=== PATIENT | male | born 1935 | race Caucasian/White ===

== ENCOUNTER 2017-12-12 10:29 | Inpatient (IN) | payer OTHER, BC ==
--- NOTE | 2017-12-12 10:52 | PDOC ---
History of Present Illness - General History Source: Family Exam Limitations: No Limitations - History of Present Illness Initial Comments: 12/12/17 11:14 The patient is an 82-year-old male, with a significant past medical history of CAD s/p [place] s/p stent with restenosis, left-sided systolic heart failure with mild aortic stenosis, angina pectoris, HTN, HLD, anemia, dementia, Parkinsons, a large intestine neoplasm, acute erosive gastritis, type 2 diabetes, chronic renal insufficiency, BPH, and urinary retention secondary to obstructive uropathy, who presents to the ED with elevated BP and urinary retention today. As per daughter, the patient was recently admitted last Friday12/07/17 at [facility] for a kidney infection. A de anda was placed and the patient was discharged home with 500 mg Cipro. Daughter decided to bring in the patient today because she noted his blood sugar was over 200 today and he has not been putting out much urine. She also reports that the patient has not been drinking much fluids, but has a good appetite. For the past couple of mornings, the patient has been experiencing shortness of breath for which hes been given O2 at home. The patient is followed by a PCP at [facility] but was previously followed by Dr. Tarah Johnston. She denies that the patient is experiencing any fever, chills, cough, nausea, vomiting, diarrhea, or abdominal pain. Denies any chest pain. Denies any recent trauma. Allergies: Penicillins Surgical History: Stent x2 <Jenny Deng - Last Filed: 12/12/17 12:32> - General History Source: Patient, Family Exam Limitations: No Limitations <Belen Daniel - Last Filed: 12/12/17 15:04> - General Chief Complaint: Weakness Stated Complaint: URINARY PROBLEM (ALTERED MENTAL STATUS) Time Seen by Provider: 12/12/17 10:52 Past History <Jenny Deng - Last Filed: 12/12/17 12:32> - Past Medical History Anemia: Yes Asthma: No Cancer: No Cardiac Disorders: Yes (STENTS, CAD) CVA: Yes (TIA) COPD: No CHF: No DVT: No Dementia: Yes Diabetes: Yes GI Disorders: Yes Disorders: No HTN: Yes Hypercholesterolemia: Yes Liver Disease: No Seizures: No Thyroid Disease: No Other medical history: ble circulation problems - Surgical History Abdominal Surgery: No Appendectomy: No Cardiac Surgery: Yes (SENT X 2) Cholecystectomy: No Lung Surgery: No Neurologic Surgery: No Orthopedic Surgery: No - Immunization History Immunization Up to Date: No - Suicide/Smoking/Psychosocial Hx Smoking Status: No Smoking History: Never smoked Years of Tobacco Use: 0 Have you smoked in the past 12 months: No Number of Cigarettes Smoked Daily: 0 Cigars Per Day: 0 Information on smoking cessation initiated: No Hx Alcohol Use: No Drug/Substance Use Hx: No Substance Use Type: None Hx Substance Use Treatment: No <Belen Daniel - Last Filed: 12/12/17 15:04> - Past Medical History Allergies/Adverse Reactions: Allergies Allergy/AdvReac Type Severity Reaction Status Date / Time Penicillins Allergy Verified 12/12/17 10:31 Home Medications: Ambulatory Orders Amlodipine Besylate [Norvasc -] 5 mg PO DAILY 10/01/12 Carvedilol [Coreg] 25 mg PO BID 10/01/12 Clopidogrel Bisulfate [Plavix -] 75 mg PO DAILY #0 10/06/12 Glipizide [Glucotrol] 10 mg PO BID 11/05/12 Ranolazine [Ranexa] 500 mg PO BID 11/05/12 Atorvastatin Ca [Lipitor] 40 mg PO HS #0 tablet 11/09/12 Insulin (Levemir) [Levemir Flexpen -] 50 units SQ ACBK #0 pen 11/09/12 [place]-3 Acid Ethyl Esters [Lovaza -] 2 gm PO BID #0 cap 11/09/12 Folic Acid - 1 mg PO DAILY 12/01/12 Furosemide [Lasix -] 20 mg PO DAILY 12/01/12 Lisinopril [Prinivil] 20 mg PO DAILY 12/01/12 Pantoprazole Suspension [Protonix Packets For Oral Suspension -] 40 mg PO DAILY 12/01/12 Sitagliptin Phosphate [Januvia] 50 mg PO DAILY 12/01/12 Aspirin 81 mg PO DAILY 04/20/13 Ferrous Sulfate [Feosol] 325 mg PO DAILY 04/20/13 Febuxostat [Uloric -] 1 tab PO DAILY 09/28/13 Review of Systems - Review of Systems Able to Perform ROS?: Yes Comments:: 12/12/17 11:28 GENERAL/CONSTITUTIONAL: No: fever, chills, weakness, loss of appetite. HEAD, EYES, EARS, NOSE AND THROAT: No: change in vision, ear pain, discharge, sore throat, throat swelling. CARDIOVASCULAR: No: chest pain, lightheadedness, palpitations, syncope RESPIRATORY: No: cough, shortness of breath, wheezing, hemoptysis, stridor. GASTROINTESTINAL: No: nausea, vomiting, abdominal cramping, diarrhea, rectal bleeding, constipation. GENITOURINARY: (+)Urinary retention. No: dysuria, hematuria, frequency, urgency , flank pain. MUSCULOSKELETAL: No: back pain, neck pain, joint pain, muscle swelling or pain SKIN AND BREASTS: No: lesions, pallor, rash or easy bruising. NEUROLOGIC: No: headache, vertigo, paresthesias, weakness ENDOCRINE: (+)High BS. No: unexplained weight gain or loss HEMATOLOGIC/LYMPHATIC: No: anemia, easy bleeding, swelling nodes <Jenny Deng - Last Filed: 12/12/17 12:32> *Physical Exam - Vital Signs Last Vital Signs Temp Pulse Resp BP Pulse Ox 97.9 F 63 18 175/108 100 12/12/17 10:32 12/12/17 10:32 12/12/17 10:32 12/12/17 10:32 12/12/17 10:32 - Physical Exam Comments: 12/12/17 11:29 GENERAL: The patient is in no acute distress. HEAD: Normal with no signs of trauma. EYES: PERRLA, EOMI, sclera anicteric, conjunctiva clear. ENT: Ears normal, nares patent, oropharynx clear without exudates. Moist mucous membranes. NECK: Normal range of motion, supple without lymphadenopathy, JVD, or masses. LUNGS: Breath sounds equal, clear to auscultation bilaterally. No wheezes, and no crackles. HEART: (+)5/6 systolic murmur. No rub or gallop. ABDOMEN: Soft, nontender, normoactive bowel sounds. No guarding, no rebound. EXTREMITIES: Normal range of motion, no edema. No clubbing or cyanosis. No erythema, or tenderness. NEUROLOGICAL: (+)Answers questions but slightly confused. Cranial nerves II through XII grossly intact. Normal speech. No focal neurological deficits. MUSCULOSKELETAL: Back non-tender to palpation, no CVA tenderness SKIN: Warm, Dry, normal turgor, no rashes or lesions noted. <IshJenny - Last Filed: 12/12/17 12:32> - Vital Signs Last Vital Signs Temp Pulse Resp BP Pulse Ox 97.9 F 63 18 175/108 100 12/12/17 10:32 12/12/17 10:32 12/12/17 10:32 12/12/17 10:32 12/12/17 10:32 <Belen Daniel - Last Filed: 12/12/17 15:04> ED Treatment Course - LABORATORY CBC & Chemistry Diagram: 12/12/17 11:20 12/12/17 11:20 - RADIOLOGY Radiology Studies Ordered: 12/12/17 12:32 Chest X-Ray was reviewed by Dr. Daniel and over-read by Radiology. Impression: In comparison to a 2015 radiographic study interval development of mild bilateral lower lobe nonspecific opacity is seen which may represent small infiltrates versus congestive change. Clinical/laboratory correlation is suggested. <Jenny Deng - Last Filed: 12/12/17 12:32> - LABORATORY CBC & Chemistry Diagram: 12/12/17 11:20 12/12/17 13:36 <Belen Daniel - Last Filed: 12/12/17 15:04> Medical Decision Making - Medical Decision Making 12/12/17 11:15 Mr Brambila is an 82 yo M with a h/o Dementia, CAD s/p stents, TIA, IDDM, HTN, HLD who presents to the ER with family due to "multiple complaints" Pt was recently seen at OSH, found to have a UTI, started on Cipro de anda cathether placed Pt brought to [facility] according to daughter due to elevated glucose, generalized weakness No fevers or chills No vomiting No diarrhea No trauma Pt daughter is concerned because he had decreased urine output over night (only 200 cc) Pt has been eating, decreased liquid intake Will do: Labs UA Unfortunately, we do not have access to the cultures from [facility] [place] [facility] 12/12/17 12:32 Laboratory Tests 12/12/17 12/12/17 12/12/17 11:20 11:20 11:20 WBC 6.1 D Hgb 12.9 D Hct 39.1 Plt Count 181 Neutrophils % 56.2 Lymphocytes % 27.9 D PT with INR 11.10 INR 0.98 PTT (Actin FS) 28.6 VBG pH 7.36 POC VBG pCO2 44.2 POC VBG pO2 38.2 Mixed VBG HCO3 24.4 Lactic Acid 12/12/17 11:20 WBC Hgb Hct Plt Count Neutrophils % Lymphocytes % PT with INR INR PTT (Actin FS) VBG pH POC VBG pCO2 POC VBG pO2 Mixed VBG HCO3 Lactic Acid 0.6 12/12/17 14:24 Laboratory Tests 12/12/17 13:56 Ur Specific [place] 1.016 Urine Glucose (UA) 2+ H Urine Ketones Negative Urine Blood Negative Ur Leukocyte Esterase Negative Urine WBC (Auto) 2 Urine RBC (Auto) 3 Hyaline Casts 4 EKG: SR rate of 61 bpm, [place] nml, (+) LVH, no ST elevations or depressions T waves upright Still waiting on CMP 12/12/17 14:51 Laboratory Tests 12/12/17 12/12/17 13:36 13:36 Sodium 146 H Potassium 5.0 Chloride 111 H Carbon Dioxide 25 Anion Gap 10 BUN 32 H D Creatinine 1.7 H Random Glucose 266 H D Creatine Kinase 58 Troponin I < 0.02 B-Natriuretic Peptide 3028.38 H I have had a long conversation with this patient's daughter I have expressed that this patient does not have an acute indication to be admitted to the hospital PT daughter states that she can no longer take care of her father She would like him to be admitted and sent to a residential Case reviewed with Dr Johnston He requests consulting Dr Barton Clinical impression: Weakness, initial presentation Hyperglycemia, initial presentation 12/12/17 15:03 CXR: bilateral increased markings which suggests Heart Failure Will admit for CHF vs pneumonia <Bleen Daniel - Last Filed: 12/12/17 15:04> *DC/Admit/Observation/Transfer - Attestations Scribe Attestion: 12/12/17 11:31 Documentation prepared by Jenny Deng, acting as medical legal investigator for Bleen Daniel MD. <Jenny Deng - Last Filed: 12/12/17 12:32> - Discharge Dispostion Admit: Yes <Belen Daniel - Last Filed: 12/12/17 15:04> Diagnosis at time of Disposition: CHF (congestive heart failure) Qualifiers: Heart failure type: other Qualified Code(s): I50.9 - Heart failure, unspecified - Discharge Dispostion Condition at time of disposition: Stable
[2017-12-12 11:32] LABS: VENOUS PH 7.36 (7.32-7.42)
[2017-12-12 11:33] LABS: VENOUS PC02 44.2 mmHg (38-52); VENOUS PO2 38.2 mmHg (28-48)
[2017-12-12 11:36] LABS: BASO % 0.9 % (0-2.0); EOS % 7.9 % (0-4.5); HEMATOCRIT 39.1 % (35.4-49); HEMOGLOBIN 12.9 GM/dL (11.7-16.9); LYMPH % 27.9 % (8-40); MCH 31.2 pg (25.7-33.7); MEAN CELL VOLUME 94.5 fl (80-96); MEAN PLT VOLUME 9.7 fl (7.5-11.1); MONO % 7.1 % (3.8-10.2); NEUT % 56.2 % (42.8-82.8); PLATELET COUNT 181 K/MM3 (134-434); RBC 4.14 M/mm3 (4.00-5.60); RDW 14.5 % (11.9-15.9); WHITE BLOOD COUNT 6.1 K/mm3 (4.0-10.0)
[2017-12-12 11:51] LABS: INR 0.98 (0.82-1.09); PROTHROMBIN TIME (PATIENT) 11.1 SEC (9.98-11.88)
[2017-12-12 11:54] LABS: ACTIVATED PTT 28.6 SECONDS (26.9-34.4)
[2017-12-12 14:08] LABS: URINE APPEARANCE CLEAR; URINE BILIRUBIN NEGATIVE (<2.0 mg/dL); URINE COLOR LTYELLOW; URINE GLUCOSE (UA) 2+ (NEGATIVE); URINE KETONE NEGATIVE (NEGATIVE); URINE LEUK ESTERASE NEGATIVE (NEGATIVE); URINE NITRITE NEGATIVE (NEGATIVE); URINE UROBILINOGEN NEGATIVE mg/dL (0.2-1.0)
[2017-12-12 14:10] LABS: URINE PROTEIN 3+ (NEGATIVE)
[2017-12-12 14:14] LABS: URINE HYALINE CAST 4 /lpf
[2017-12-12 14:33] LABS: ALBUMIN 2.3 g/dl (3.4-5.0); ANION GAP 10 (8-16); BLOOD UREA NITROGEN 32 mg/dL (7-18); CALCIUM 8.7 mg/dL (8.5-10.1); CHLORIDE 111 mmol/L (98-107); CO2 25 mmol/L (21-32); CREATININE 1.7 mg/dL (0.7-1.3); GLUCOSE,RANDOM 266 mg/dL (74-106); SGOT/AST 25 U/L (15-37); SGPT/ALT 22 U/L (12-78); SODIUM 146 mmol/L (136-145)
[2017-12-12 14:38] LABS: ALK PHOS 94 U/L (45-117); BILIRUBIN,TOTAL 0.3 mg/dL (0.2-1.0)
[2017-12-12] MEDS ORDERED: INSULIN REGULAR HUMAN 100 UNITS/ML *VIAL IVPUSH ONE (14:51)
[2017-12-12] MEDS ORDERED: CARVEDILOL 25 MG TABLET (FP) PO ONE (18:30)
[2017-12-12 19:26] VITALS: BMI 26.3
[2017-12-12] MEDS ORDERED: PT OWN MED DRAWER 7, Y5N ONE (21:19)
[2017-12-12] MEDS: INSULIN SLIDING SCALE (NOVOLOG) 1 VIAL SQ SCH (22:41)
[2017-12-13] MEDS: INSULIN SLIDING SCALE (NOVOLOG) 1 VIAL SQ SCH ×4 (06:04→21:24)
[2017-12-13 09:21] LABS: EOS % 4.9 % (0-4.5); HEMATOCRIT 40.2 % (35.4-49); HEMOGLOBIN 13.6 GM/dL (11.7-16.9); LYMPH % 23.9 % (8-40); MCH 31.6 pg (25.7-33.7); MCHC 33.9 g/dl (32.0-35.9); MEAN CELL VOLUME 93.4 fl (80-96); MEAN PLT VOLUME 9.2 fl (7.5-11.1); NEUT % 65.2 % (42.8-82.8); PLATELET COUNT 207 K/MM3 (134-434); RBC 4.31 M/mm3 (4.00-5.60); WHITE BLOOD COUNT 6.7 K/mm3 (4.0-10.0)
[2017-12-13 09:46] LABS: PROTHROMBIN TIME (PATIENT) 11.3 SEC (9.98-11.88)
[2017-12-13 09:53] LABS: ALBUMIN 2.2 g/dl (3.4-5.0); ANION GAP 5 (8-16); BLOOD UREA NITROGEN 26 mg/dL (7-18); CALCIUM 8.5 mg/dL (8.5-10.1); CHLORIDE 108 mmol/L (98-107); CO2 27 mmol/L (21-32); CREATININE 1.5 mg/dL (0.7-1.3); GLUCOSE,RANDOM 240 mg/dL (74-106); POTASSIUM 4.1 mmol/L (3.5-5.1); SGOT/AST 15 U/L (15-37); SGPT/ALT 21 U/L (12-78); SODIUM 140 mmol/L (136-145)
[2017-12-13 09:57] LABS: ALK PHOS 93 U/L (45-117); BILIRUBIN,TOTAL 0.3 mg/dL (0.2-1.0); N-TERMINAL BNP 5139.73 pg/ml (5-450); TOT PROT 5.7 g/dl (6.4-8.2)
--- NOTE | 2017-12-13 11:21 | HP ---
Admitting History and Physical - Admission History of Present Illness: 82-year-old male, with a significant past medical history of CAD s/p [place] s/p stent with restenosis, left-sided systolic heart failure with mild aortic stenosis, angina pectoris, HTN, HLD, anemia, dementia, Parkinson, a large intestine neoplasm, acute erosive gastritis, type 2 diabetes, chronic renal insufficiency, BPH, and urinary retention secondary to obstructive uropathy, who presents to the ED with elevated BP and urinary retention today. As per daughter, the patient was recently admitted last Friday12/07/17 at [facility] for a kidney infection. A de anda was placed and the patient was discharged home with 500 mg Cipro. Daughter decided to bring in the patient today because she noted his blood sugar was over 200 today and he has not been putting out much urine. She also reports that the patient has not been drinking much fluids, but has a good appetite. For the past couple of mornings, the patient has been experiencing shortness of breath for which hes been given O2 at home. 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: Dementia, Other (Lower extremity weakness) Cardiovascular: Yes: CAD, CHF, HTN, Hyperlipdemia Pulmonary: Yes: COPD Renal/: Yes: Other (Urinary retention) Musculoskeletal: Yes: Other (Lower extremity weakness) Endocrine: Yes: Diabetes Mellitus - Smoking History Smoking history: Never smoked Have you smoked in the past 12 months: No Aproximately how many cigarettes per day: 0 - Alcohol/Substance Use Hx Alcohol Use: No Home Medications - Allergies Allergies/Adverse Reactions: Allergies Allergy/AdvReac Type Severity Reaction Status Date / Time Penicillins Allergy Verified 12/12/17 10:31 - Home Medications Home Medications: Ambulatory Orders Amlodipine Besylate [Norvasc -] 5 mg PO DAILY 10/01/12 Carvedilol [Coreg] 25 mg PO BID 10/01/12 Glipizide [Glucotrol] 10 mg PO BID 11/05/12 Lisinopril [Prinivil] 30 mg PO DAILY 12/01/12 Aspirin 81 mg PO DAILY 04/20/13 Ciprofloxacin [Cipro -] 500 mg PO DAILY 12/12/17 Omeprazole 40 mg PO DAILY 12/12/17 Quetiapine Fumarate [Seroquel -] 50 mg PO HS 12/12/17 Heather Esquivelostar 65 unit SQ AM 12/12/17 Review of Systems - Review of Systems Cardiovascular: denies: Chest Pain Physical Examination Vital Signs: Vital Signs Temperature 98.2 F 12/13/17 09:13 Pulse Rate 70 12/13/17 09:13 Respiratory Rate 16 12/13/17 09:13 Blood Pressure 141/66 12/13/17 09:13 O2 Sat by Pulse Oximetry (%) 98 12/12/17 22:00 Cardiovascular: Yes: S1, S2 Respiratory: Yes: Diminished Gastrointestinal: Yes: Normal Bowel Sounds, Soft Edema: No Labs: CBC, BMP 12/13/17 09:13 12/13/17 09:13 Problem List - Problems (1) CAD (coronary artery disease) Assessment/Plan: -follow ce -ekg -cardio Code(s): I25.10 - ATHSCL HEART DISEASE OF [place] CORONARY ARTERY W/O ANG PCTRS (2) HTN (hypertension) Assessment/Plan: -monitor bp on meds -cardio Code(s): I10 - ESSENTIAL (PRIMARY) HYPERTENSION (3) CHF (congestive heart failure) Assessment/Plan: iv lasix follow up ct Code(s): I50.9 - HEART FAILURE, UNSPECIFIED Qualifiers: Heart failure type: other Qualified Code(s): I50.9 - Heart failure, unspecified (4) Renal insufficiency Assessment/Plan: follow closely on diuretics Code(s): N28.9 - DISORDER OF KIDNEY AND URETER, UNSPECIFIED
[2017-12-13] MEDS: PANTOPRAZOLE 40 MG TABLET (FP) PO SCH (11:41)
[2017-12-13] MEDS: ASPIRIN 81 MG CHEWABLE TABLETS PO SCH (11:41)
[2017-12-13] MEDS: CARVEDILOL 25 MG TABLET (FP) PO SCH ×2 (11:42→21:08)
[2017-12-13] MEDS: FUROSEMIDE 40 MG/4 ML INJECTABLE VIAL IVPUSH SCH (12:07)
--- NOTE | 2017-12-13 13:40 | CON.CARD ---
Consult Consult Specialty:: cardiology Referred by:: Oralia Reason for Consultation:: Poorly controlled hypertension - History of Present Illness Chief Complaint: Urinary retention History of Present Illness: The patient is an 82-year-old man with significant dementia, diabetes, hypertension, coronary artery disease and myocardial infarction, prior stents, hyperlipidemia, CHF, mild aortic valve stenosis, large intestine cancer, chronic kidney disease, BPH, obstructive uropathy, admitted on 12/12/2017 with urinary retention and elevated blood pressure. The patient seems comfortable. He is in no apparent distress. 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, Other (Lower extremity weakness) Cardio/Vascular: Yes: CAD, CHF, HTN, Hyperlipdemia Pulmonary: Yes: COPD Renal/: Yes: Other (Urinary retention) Musculoskeletal: Yes: Other (Lower extremity weakness) Endocrine: Yes: Diabetes Mellitus - Alcohol/Substance Use Hx Alcohol Use: No - Smoking History Smoking history: Never smoked Have you smoked in the past 12 months: No Aproximately how many cigarettes per day: 0 Home Medications - Allergies Allergies/Adverse Reactions: Allergies Allergy/AdvReac Type Severity Reaction Status Date / Time Penicillins Allergy Verified 12/12/17 10:31 - Home Medications Home Medications: Ambulatory Orders Amlodipine Besylate [Norvasc -] 5 mg PO DAILY 10/01/12 Carvedilol [Coreg] 25 mg PO BID 10/01/12 Glipizide [Glucotrol] 10 mg PO BID 11/05/12 Lisinopril [Prinivil] 30 mg PO DAILY 12/01/12 Aspirin 81 mg PO DAILY 04/20/13 Ciprofloxacin [Cipro -] 500 mg PO DAILY 12/12/17 Omeprazole 40 mg PO DAILY 12/12/17 Quetiapine Fumarate [Seroquel -] 50 mg PO HS 12/12/17 [place]o Solostar 65 unit SQ AM 12/12/17 Review of Systems - Review of Systems Constitutional: reports: No Symptoms Eyes: reports: No Symptoms HENT: reports: No Symptoms Neck: reports: No Symptoms Cardiovascular: reports: No Symptoms Respiratory: reports: No Symptoms Gastrointestinal: reports: No Symptoms Genitourinary: reports: No Symptoms Breasts: reports: No Symptoms Reported Musculoskeletal: reports: No Symptoms Integumentary: reports: No Symptoms Neurological: reports: No Symptoms Endocrine: reports: No Symptoms Hematology/Lymphatic: reports: No Symptoms Psychiatric: reports: No Symptoms, Hallucinations Vital Signs: Vital Signs Temperature 98.2 F 12/13/17 09:13 Pulse Rate 70 12/13/17 09:13 Respiratory Rate 16 12/13/17 09:13 Blood Pressure 141/66 12/13/17 09:13 O2 Sat by Pulse Oximetry (%) 98 12/12/17 22:00 Constitutional: Yes: Well Nourished, No Distress, Calm Eyes: Yes: WNL, Conjunctiva Clear HENT: Yes: WNL, Atraumatic, Normocephalic Neck: Yes: WNL, Supple, Trachea Midline Respiratory: Yes: WNL, Regular, CTA Bilaterally Gastrointestinal: Yes: WNL, Normal Bowel Sounds, Soft Renal/: Yes: WNL Cardiovascular: Yes: WNL, Regular Rate and Rhythm JVD: No Carotid Bruit: No PMI: Non-Displaced Heart Sounds: Yes: S1, S2 Murmur: Yes: Systolic Murmur, Grade 2 Musculoskeletal: Yes: WNL Extremities: Yes: WNL Edema: No Peripheral Pulses: 1+ Left Carotid, 1+ Right Carotid, 1+ Left Femoral, 1+ Right Femoral, 1+ Left Popliteal, 1+ Right Popliteal, 1+ Left Doralis Pedis, 1+ Right Dorsalis Pedis Neurological: Yes: Other (Dementia) - Other Data Labs, Other Data: CBC, BMP 12/13/17 09:13 12/13/17 09:13 INR, PTT INR 1.00 (0.82-1.09) 12/13/17 09:13 Troponin, BNP 12/12/17 12/12/17 12/13/17 13:36 13:36 09:13 Troponin I < 0.02 < 0.02 B-Natriuretic Peptide 3028.38 H 5139.73 H Troponin, BNP 12/12/17 12/12/17 12/13/17 13:36 13:36 09:13 Troponin I < 0.02 < 0.02 B-Natriuretic Peptide 3028.38 H 5139.73 H Assessment/Plan 82-year-old man with significant dementia, history of diabetes, hypertension, coronary artery disease and myocardial infarction, status post stents, hyperlipidemia, CHF, large intestinal cancer, chronic kidney disease, BPH, obstructive uropathy, now admitted with urinary retention and elevated blood pressure. Next There is no evidence of ischemia nor acute coronary syndrome. No CHF. The patient is breathing comfortably. He is in no apparent distress. The blood pressure needs better control. Start Norvasc 5 mg daily. Continue the other medications as currently. There is no need for further cardiac workup at this point. The patient is stable from the cardiac standpoint. May stop telemetry. Please do not hesitate to call us PRN
[2017-12-13] MEDS: amLODIPine BESYLATE 5 MG TABLET (FP) PO SCH (17:15)
--- NOTE | 2017-12-13 17:36 | EKG ---
Test Reason : Blood Pressure : / mmHG Vent. Rate : 063 BPM Atrial Rate : 063 BPM P-R Int : 166 ms QRS Dur : 086 ms QT Int : 428 ms P-R-T Axes : 039 012 024 degrees QTc Int : 437 ms SINUS RHYTHM WITH OCCASIONAL PREMATURE VENTRICULAR COMPLEXES and Atrial premature contractions SEPTAL INFARCT (CITED ON OR BEFORE 01-OCT-2012) ABNORMAL ECG WHEN COMPARED WITH ECG OF 12-DEC-2017 14:17, PREMATURE VENTRICULAR COMPLEXES ARE NOW PRESENT Confirmed by MD ROMMEL, EULOGIO ([id number]) on 12/13/2017 5:36:05 PM Referred By: Eileen TORRES Confirmed By:EULOGIO CARNEY MD
[2017-12-13] MEDS ORDERED: INSULIN (NOVOLOG) ASPART 100 UNITS/ML 10ML VIAL ONE (20:40)
[2017-12-13] MEDS: QUEtiapine FUMARATE 50 MG TABLET PO SCH (21:08)
[2017-12-14] MEDS: INSULIN SLIDING SCALE (NOVOLOG) 1 VIAL SQ SCH ×4 (06:24→22:04)
[2017-12-14 08:20] LABS: BASO % 0.7 % (0-2.0); EOS % 5.7 % (0-4.5); HEMATOCRIT 35.7 % (35.4-49); HEMOGLOBIN 12.1 GM/dL (11.7-16.9); LYMPH % 24.8 % (8-40); MCH 31.3 pg (25.7-33.7); MCHC 33.8 g/dl (32.0-35.9); MEAN CELL VOLUME 92.7 fl (80-96); MEAN PLT VOLUME 9.3 fl (7.5-11.1); MONO % 7.3 % (3.8-10.2); NEUT % 61.5 % (42.8-82.8); PLATELET COUNT 183 K/MM3 (134-434); RBC 3.85 M/mm3 (4.00-5.60); RDW 13.9 % (11.9-15.9); WHITE BLOOD COUNT 7.1 K/mm3 (4.0-10.0)
[2017-12-14 08:47] LABS: ALBUMIN 1.9 g/dl (3.4-5.0); BLOOD UREA NITROGEN 35 mg/dL (7-18); CALCIUM 8.2 mg/dL (8.5-10.1); CO2 26 mmol/L (21-32); GLUCOSE,RANDOM 188 mg/dL (74-106)
[2017-12-14 09:03] LABS: ALK PHOS 77 U/L (45-117); ANION GAP 8 (8-16); BILIRUBIN,TOTAL 0.2 mg/dL (0.2-1.0); CHLORIDE 108 mmol/L (98-107); CHOLESTEROL 313 mg/dL (50-200); CREATININE 1.8 mg/dL (0.7-1.3); HDL CHOLESTEROL 36 mg/dL (40-60); POTASSIUM 3.6 mmol/L (3.5-5.1); SGOT/AST 13 U/L (15-37); SGPT/ALT 18 U/L (12-78); SODIUM 142 mmol/L (136-145); TRIGLYCERIDES 208 mg/dL (35-160)
--- NOTE | 2017-12-14 09:31 | PN ---
Progress Note, Physician - Current Medication List Current Medications: Active Medications Amlodipine Besylate (Norvasc -) 5 mg PO DAILY [facility] Last Admin: 12/13/17 17:15 Dose: 5 mg Aspirin (Asa -) 81 mg PO DAILY [facility] Last Admin: 12/13/17 11:41 Dose: 81 mg Carvedilol (Coreg -) 25 mg PO BID [facility] Last Admin: 12/13/17 21:08 Dose: 25 mg Furosemide (Lasix Injection -) 40 mg IVPUSH DAILY [facility] Last Admin: 12/13/17 12:07 Dose: 40 mg Levofloxacin (Levaquin 500 Mg Premixed Ivpb -) 500 mg in 100 mls @ 100 mls/hr IVPB DAILY [facility] Insulin Aspart (Novolog Vial Sliding Scale -) 1 vial SQ ACHS [facility] PRN Reason: Protocol Last Admin: 12/14/17 06:24 Dose: 2 units Pantoprazole Sodium (Protonix -) 40 mg PO DAILY [facility] Last Admin: 12/13/17 11:41 Dose: 40 mg Quetiapine Fumarate (Seroquel -) 50 mg PO HS [facility] Last Admin: 12/13/17 21:08 Dose: 50 mg - Objective Vital Signs: Vital Signs Temperature 98 F 12/14/17 07:17 Pulse Rate 57 L 12/14/17 07:17 Respiratory Rate 16 12/14/17 07:17 Blood Pressure 156/72 12/14/17 07:17 O2 Sat by Pulse Oximetry (%) 98 12/13/17 21:00 Cardiovascular: Yes: S1, S2 Respiratory: Yes: Regular, CTA Bilaterally Gastrointestinal: Yes: Normal Bowel Sounds, Soft Neurological: Yes: Alert, Aphasia (--expressive??--difficult to asses due to possible language vs cva), Confusion Labs: CBC, BMP 12/14/17 07:15 12/14/17 07:15 INR, PTT INR 1.00 (0.82-1.09) 12/13/17 09:13 Problem List - Problems (1) CAD (coronary artery disease) Assessment/Plan: -follow ce -ekg -cardio Code(s): I25.10 - ATHSCL HEART DISEASE OF [place] CORONARY ARTERY W/O ANG PCTRS (2) HTN (hypertension) Assessment/Plan: -monitor bp on meds -cardio Code(s): I10 - ESSENTIAL (PRIMARY) HYPERTENSION (3) CHF (congestive heart failure) Assessment/Plan: iv lasix--TO PO follow up ct Code(s): I50.9 - HEART FAILURE, UNSPECIFIED Qualifiers: Heart failure type: other Qualified Code(s): I50.9 - Heart failure, unspecified (4) Renal insufficiency Assessment/Plan: follow closely on diuretics Code(s): N28.9 - DISORDER OF KIDNEY AND URETER, UNSPECIFIED (5) Expressive aphasia Assessment/Plan: -CT HEAD -NEURO -CHECK ON BASELINE WITH FAMILY Code(s): R47.01 - APHASIA
[2017-12-14] MEDS: CARVEDILOL 25 MG TABLET (FP) PO SCH ×2 (09:39→22:03)
[2017-12-14] MEDS: amLODIPine BESYLATE 5 MG TABLET (FP) PO SCH (09:39)
[2017-12-14] MEDS: ASPIRIN 81 MG CHEWABLE TABLETS PO SCH (09:39)
[2017-12-14] MEDS: PANTOPRAZOLE 40 MG TABLET (FP) PO SCH (09:39)
[2017-12-14] MEDS: FUROSEMIDE 40 MG/4 ML INJECTABLE VIAL IVPUSH SCH (09:39)
[2017-12-14] MEDS: QUEtiapine FUMARATE 50 MG TABLET PO SCH (22:03)
[2017-12-14] MEDS: ATORVASTATIN CA 40 MG TABLET (FP) PO SCH (22:03)
[2017-12-15] MEDS: INSULIN SLIDING SCALE (NOVOLOG) 1 VIAL SQ SCH ×4 (06:17→22:22)
[2017-12-15] MEDS ORDERED: PT OWN MED DRAWER 7, Y5N ONE (11:03)
--- NOTE | 2017-12-15 11:40 | EKG ---
Test Reason : Blood Pressure : / mmHG Vent. Rate : 061 BPM Atrial Rate : 061 BPM P-R Int : 156 ms QRS Dur : 084 ms QT Int : 428 ms P-R-T Axes : 026 -05 012 degrees QTc Int : 430 ms NORMAL SINUS RHYTHM MODERATE VOLTAGE CRITERIA FOR LVH, MAY BE NORMAL VARIANT CANNOT RULE OUT SEPTAL INFARCT (CITED ON OR BEFORE 01-OCT-2012) ABNORMAL ECG WHEN COMPARED WITH ECG OF 07-OCT-2014 09:37, T WAVE VARIATION Confirmed by ELMA FARRIS MD ([id number]) on 12/15/2017 11:39:41 AM Referred By: Confirmed By:ELMA FARRIS MD
[2017-12-15] MEDS: CARVEDILOL 25 MG TABLET (FP) PO SCH ×2 (11:49→22:22)
[2017-12-15] MEDS: ASPIRIN 81 MG CHEWABLE TABLETS PO SCH (11:49)
[2017-12-15] MEDS: FUROSEMIDE 20 MG TABLET (FP) PO SCH (11:49)
[2017-12-15] MEDS: amLODIPine BESYLATE 5 MG TABLET (FP) PO SCH (11:50)
[2017-12-15] MEDS: PANTOPRAZOLE 40 MG TABLET (FP) PO SCH (11:50)
--- NOTE | 2017-12-15 12:52 | PN ---
Progress Note, Physician Chief Complaint: AWAKE CONFUSED UNABLE TO GIVE MUCH INFORMATION DUE TO HIS DEMENTIA - Current Medication List Current Medications: Active Medications Albuterol/Ipratropium (Duoneb -) 1 amp NEB Q6H PRN PRN Reason: SHORTNESS OF BREATH Amlodipine Besylate (Norvasc -) 5 mg PO DAILY [facility] Last Admin: 12/15/17 11:50 Dose: 5 mg Aspirin (Asa -) 81 mg PO DAILY [facility] Last Admin: 12/15/17 11:49 Dose: 81 mg Atorvastatin Calcium (Lipitor -) 40 mg PO HS [facility] Last Admin: 12/14/17 22:03 Dose: 40 mg Carvedilol (Coreg -) 25 mg PO BID [facility] Last Admin: 12/15/17 11:49 Dose: 25 mg Furosemide (Lasix -) 20 mg PO DAILY [facility] Last Admin: 12/15/17 11:49 Dose: 20 mg Levofloxacin (Levaquin 500 Mg Premixed Ivpb -) 500 mg in 100 mls @ 100 mls/hr IVPB DAILY [facility] Last Admin: 12/14/17 09:40 Dose: 100 mls/hr Insulin Aspart (Novolog Vial Sliding Scale -) 1 vial SQ ACHS [facility] PRN Reason: Protocol Last Admin: 12/15/17 12:15 Dose: 6 units Pantoprazole Sodium (Protonix -) 40 mg PO DAILY [facility] Last Admin: 12/15/17 11:50 Dose: 40 mg Quetiapine Fumarate (Seroquel -) 50 mg PO HS [facility] Last Admin: 12/14/17 22:03 Dose: 50 mg - Objective Vital Signs: Vital Signs Temperature 98.6 F 12/15/17 09:00 Pulse Rate 64 12/15/17 09:00 Respiratory Rate 20 12/15/17 09:00 Blood Pressure 131/67 12/15/17 09:00 O2 Sat by Pulse Oximetry (%) 100 12/14/17 21:00 Constitutional: Yes: No Distress Eyes: Yes: WNL HENT: Yes: WNL Neck: Yes: WNL Cardiovascular: Yes: WNL Respiratory: Yes: Rhonchi Gastrointestinal: Yes: WNL Genitourinary: Yes: Álvarez Present Musculoskeletal: Yes: Muscle Weakness Extremities: Yes: WNL Edema: No Peripheral Pulses WNL: Yes Integumentary: Yes: WNL Wound/Incision: Yes: Clean/Dry Neurological: Yes: Confusion, Pre-Existing Deficit ...Motor Strength: LLE, RLE Psychiatric: Yes: Other Labs: CBC, BMP 12/14/17 07:15 12/14/17 07:15 INR, PTT INR 1.00 (0.82-1.09) 12/13/17 09:13 Problem List - Problems (1) CVA, old, alterations of sensations Code(s): I69.398 - OTHER SEQUELAE OF CEREBRAL INFARCTION; R20.9 - UNSPECIFIED DISTURBANCES OF SKIN SENSATION (2) CAD (coronary artery disease) Code(s): I25.10 - ATHSCL HEART DISEASE OF [place] CORONARY ARTERY W/O ANG PCTRS (3) CHF (congestive heart failure) Code(s): I50.9 - HEART FAILURE, UNSPECIFIED Qualifiers: Heart failure type: other Qualified Code(s): I50.9 - Heart failure, unspecified (4) Expressive aphasia Code(s): R47.01 - APHASIA (5) HTN (hypertension) Code(s): I10 - ESSENTIAL (PRIMARY) HYPERTENSION (6) Renal insufficiency Code(s): N28.9 - DISORDER OF KIDNEY AND URETER, UNSPECIFIED (7) Urinary retention Code(s): R33.9 - RETENTION OF URINE, UNSPECIFIED Assessment/Plan PULMONARY EVAL FOR CT CHEST CHANGES DUONEB STARTED INCENTIVE SPIROMETRY OLD CVA, DEMENTIA I CALLED AND LEFT A MESSAGE WITH HIS DAUGHTER CARIN. AWAIT CALL BACK PT EVAL SNF IV ABX FOR CHRONIC UTI EVAL FOR URINARY RETENTION BLADDER LENORE
--- NOTE | 2017-12-15 14:40 | CON.GU ---
Consult Consult Specialty:: urology Referred by:: gladis Reason for Consultation:: urinary retention on levaquin for kidney infection - History of Present Illness Chief Complaint: urinary retention on levaquin for kidney infection History of Present Illness: Patient is unable to give an history. The chart and caregiver are utilized for the history. The patient went to [facility] on December 07 at which time a catheter was placed and the patient was started on Cipro. The patient was brought in by his daughter due to rising blood sugars and poor urine output. 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, Other (Lower extremity weakness) Cardio/Vascular: Yes: CAD, CHF, HTN, Hyperlipdemia Pulmonary: Yes: COPD Renal/: Yes: Other (Urinary retention) Musculoskeletal: Yes: Other (Lower extremity weakness) Endocrine: Yes: Diabetes Mellitus - Alcohol/Substance Use Hx Alcohol Use: No - Smoking History Smoking history: Never smoked Have you smoked in the past 12 months: No Aproximately how many cigarettes per day: 0 Home Medications - Allergies Allergies/Adverse Reactions: Allergies Allergy/AdvReac Type Severity Reaction Status Date / Time Penicillins Allergy Verified 12/12/17 10:31 - Home Medications Home Medications: Ambulatory Orders Amlodipine Besylate [Norvasc -] 5 mg PO DAILY 10/01/12 Carvedilol [Coreg] 25 mg PO BID 10/01/12 Glipizide [Glucotrol] 10 mg PO BID 11/05/12 Lisinopril [Prinivil] 30 mg PO DAILY 12/01/12 Aspirin 81 mg PO DAILY 04/20/13 Ciprofloxacin [Cipro -] 500 mg PO DAILY 12/12/17 Omeprazole 40 mg PO DAILY 12/12/17 Quetiapine Fumarate [Seroquel -] 50 mg PO HS 12/12/17 Toujeo Solroldan 65 unit SQ AM 12/12/17 Physical Exam- Vital Signs: Vital Signs Temperature 98.6 F 12/15/17 09:00 Pulse Rate 64 12/15/17 09:00 Respiratory Rate 20 12/15/17 09:00 Blood Pressure 131/67 12/15/17 09:00 O2 Sat by Pulse Oximetry (%) 100 12/14/17 21:00 Constitutional: Yes: Calm Eyes: Yes: WNL, Conjunctiva Clear HENT: Yes: WNL, Atraumatic, Normocephalic Neck: Yes: WNL, Supple, Trachea Midline Respiratory: Yes: WNL, Regular Gastrointestinal: Yes: Normal Bowel Sounds, Soft Renal/: Yes: WNL Kidneys: Yes: WNL Pelvis: Yes: WNL, Bladder Non Palpable Testicles: Yes: WNL Scrotum: Yes: WNL Penis: Yes: WNL Prostate Exam: Yes: Asymmetrical, Swollen Labs: CBC, BMP 12/14/17 07:15 12/14/17 07:15 Imaging - Results Ultrasound: Image Reviewed Assessment/Plan imp uti/pyelo urinary retention bph renal insufficiency plan continue antibiotics start flomax give the patient a trial of voiding on Friday thank you for this consultation
[2017-12-15] MEDS ORDERED: TAMSULOSIN HCL 0.4 MG CAP.ER.24H (FP) PO ONE (15:00)
[2017-12-15] MEDS: ATORVASTATIN CA 40 MG TABLET (FP) PO SCH (22:21)
[2017-12-15] MEDS: QUEtiapine FUMARATE 50 MG TABLET PO SCH (22:22)
[2017-12-16] MEDS: INSULIN SLIDING SCALE (NOVOLOG) 1 VIAL SQ SCH ×4 (06:41→21:16)
[2017-12-16] MEDS: CARVEDILOL 25 MG TABLET (FP) PO SCH ×2 (09:52→21:16)
[2017-12-16] MEDS: amLODIPine BESYLATE 5 MG TABLET (FP) PO SCH (09:52)
[2017-12-16] MEDS: ASPIRIN 81 MG CHEWABLE TABLETS PO SCH (09:52)
[2017-12-16] MEDS: PANTOPRAZOLE 40 MG TABLET (FP) PO SCH (09:52)
[2017-12-16] MEDS: FUROSEMIDE 20 MG TABLET (FP) PO SCH (09:52)
--- NOTE | 2017-12-16 11:04 | CON.PULM ---
Consult Consult Specialty:: PULMONARY Referred by:: Dr. Barton Reason for Consultation:: abnormal CT chest - History of Present Illness Chief Complaint: urinary retention History of Present Illness: 82yo male with h/o HTN, DM, hyperlipidemia, CAD s/p stent, LV systolic dysfunction, aortic stenosis, dementia, CKD who was admitted with urinary retention and hypertension. Now s/p de anda placement with improvement and being treated for possible UTI. CXR during initial work up showing bibasilar opacities confirmed by CT chest which also showed evidence of possible RUL bronchiolitis. Pt denies any shortness of breath, cough or wheezing. No chest pain or palpitations. He is a never smoker. 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, Other (Lower extremity weakness) Cardio/Vascular: Yes: CAD, CHF, HTN, Hyperlipdemia Pulmonary: Yes: COPD Renal/: Yes: Other (Urinary retention) Musculoskeletal: Yes: Other (Lower extremity weakness) Endocrine: Yes: Diabetes Mellitus - Alcohol/Substance Use Hx Alcohol Use: No - Smoking History Smoking history: Never smoked Have you smoked in the past 12 months: No Aproximately how many cigarettes per day: 0 Home Medications - Allergies Allergies/Adverse Reactions: Allergies Allergy/AdvReac Type Severity Reaction Status Date / Time Penicillins Allergy Verified 12/12/17 10:31 - Home Medications Home Medications: Ambulatory Orders Amlodipine Besylate [Norvasc -] 5 mg PO DAILY 10/01/12 Carvedilol [Coreg] 25 mg PO BID 10/01/12 Glipizide [Glucotrol] 10 mg PO BID 11/05/12 Lisinopril [Prinivil] 30 mg PO DAILY 12/01/12 Aspirin 81 mg PO DAILY 04/20/13 Ciprofloxacin [Cipro -] 500 mg PO DAILY 12/12/17 Omeprazole 40 mg PO DAILY 12/12/17 Quetiapine Fumarate [Seroquel -] 50 mg PO HS 12/12/17 Tourafio Solostar 65 unit SQ AM 12/12/17 Review of Systems - Review of Systems Constitutional: denies: Chills, Fever Eyes: denies: Recent Change in Vision HENT: denies: Nasal Congestion, Throat Pain Neck: denies: Stiffness, Tenderness Cardiovascular: denies: Chest Pain, Shortness of Breath Respiratory: denies: Cough, Hemoptysis, SOB, Wheezing Gastrointestinal: denies: Abdominal Pain, Nausea, Vomiting Genitourinary: reports: Other (retention) Neurological: denies: Dizziness, Headache Physical Exam Vital Sings: Vital Signs Temperature 98.2 F 12/16/17 06:00 Pulse Rate 76 12/16/17 06:00 Respiratory Rate 20 12/16/17 06:00 Blood Pressure 141/64 12/16/17 06:00 O2 Sat by Pulse Oximetry (%) 96 12/15/17 21:00 Constitutional: Yes: Calm Eyes: Yes: Conjunctiva Clear, EOM Intact HENT: Yes: Atraumatic, Normocephalic Neck: Yes: Supple, Trachea Midline Cardiovascular: Yes: Regular Rate and Rhythm, Murmur (systolic) Respiratory: Yes: Diminished (decreased breath sounds at the bases) ...Clubbing: No Gastrointestinal: Yes: Normal Bowel Sounds, Soft. No: Tenderness Edema: No Labs: CBC, BMP 12/14/17 07:15 12/14/17 07:15 Imaging - Results Chest X-ray: Report Reviewed, Image Reviewed Cat Scan: Report Reviewed, Image Reviewed (bibasilar atelectasis vs infiltrates , RUL bronchiolitis) Problem List - Problems (1) Urinary retention Code(s): R33.9 - RETENTION OF URINE, UNSPECIFIED (2) CAD (coronary artery disease) Code(s): I25.10 - ATHSCL HEART DISEASE OF [place] CORONARY ARTERY W/O ANG PCTRS (3) HTN (hypertension) Code(s): I10 - ESSENTIAL (PRIMARY) HYPERTENSION (4) Atelectasis Code(s): J98.11 - ATELECTASIS (5) Aortic stenosis Code(s): I35.0 - NONRHEUMATIC AORTIC (VALVE) STENOSIS (6) Aortic regurgitation Code(s): I35.1 - NONRHEUMATIC AORTIC (VALVE) INSUFFICIENCY (7) Pulmonary hypertension Code(s): I27.20 - PULMONARY HYPERTENSION, UNSPECIFIED Assessment/Plan Urinary Retention s/p De Anda placement CAD LV Diastolic Dysfunction Aortic Stenosis/Regurgitation Pulmonary HTN Atelectasis HTN DM Hyperlipidemia Dementia - CT chest findings and clinical exam more consistent with atelectasis rather than pneumonia - RUL findings nonspecific and on levaquin which should cover possible bronchiolitis - incentive spirometry - inhaled bronchodilators as needed - O2 to keep SpO2 >90% - DVT prophylaxis Thank you for this consult John Terrell MD
--- NOTE | 2017-12-16 12:32 | PN ---
Progress Note, Physician Chief Complaint: patient is awake but confused seen by urology for urianry retention started on flomax ,de anda to be DC tmw PT eval ordered for SNF placement - Current Medication List Current Medications: Active Medications Albuterol/Ipratropium (Duoneb -) 1 amp NEB Q6H PRN PRN Reason: SHORTNESS OF BREATH Amlodipine Besylate (Norvasc -) 5 mg PO DAILY [facility] Last Admin: 12/16/17 09:52 Dose: 5 mg Aspirin (Asa -) 81 mg PO DAILY [facility] Last Admin: 12/16/17 09:52 Dose: 81 mg Atorvastatin Calcium (Lipitor -) 40 mg PO HS [facility] Last Admin: 12/15/17 22:21 Dose: 40 mg Carvedilol (Coreg -) 25 mg PO BID [facility] Last Admin: 12/16/17 09:52 Dose: 25 mg Furosemide (Lasix -) 20 mg PO DAILY [facility] Last Admin: 12/16/17 09:52 Dose: 20 mg Levofloxacin (Levaquin 500 Mg Premixed Ivpb -) 500 mg in 100 mls @ 100 mls/hr IVPB DAILY [facility] Last Admin: 12/16/17 09:52 Dose: 100 mls/hr Insulin Aspart (Novolog Vial Sliding Scale -) 1 vial SQ ACHS [facility] PRN Reason: Protocol Last Admin: 12/16/17 11:49 Dose: 6 units Pantoprazole Sodium (Protonix -) 40 mg PO DAILY [facility] Last Admin: 12/16/17 09:52 Dose: 40 mg Quetiapine Fumarate (Seroquel -) 50 mg PO [facility] Last Admin: 12/15/17 22:22 Dose: 50 mg Tamsulosin HCl (Flomax -) 0.4 mg PO ONCE ONE Stop: 12/16/17 12:26 Tamsulosin HCl (Flomax -) 0.4 mg PO DAILY@0830 [facility] - Objective Vital Signs: Vital Signs Temperature 98.7 F 12/16/17 10:00 Pulse Rate 62 12/16/17 10:00 Respiratory Rate 18 12/16/17 10:00 Blood Pressure 140/46 12/16/17 10:00 O2 Sat by Pulse Oximetry (%) 96 12/15/17 21:00 Constitutional: Yes: Calm Cardiovascular: Yes: Regular Rate and Rhythm, S1, S2 Respiratory: Yes: CTA Bilaterally Gastrointestinal: Yes: Normal Bowel Sounds, Soft Genitourinary: Yes: De Anda Present Edema: No Neurological: Yes: Alert Labs: CBC, BMP 12/14/17 07:15 12/14/17 07:15 INR, PTT INR 1.00 (0.82-1.09) 12/13/17 09:13 Problem List - Problems (1) Renal insufficiency Assessment/Plan: orderd bmp for today renal evaluation for CKD Code(s): N28.9 - DISORDER OF KIDNEY AND URETER, UNSPECIFIED (2) Urinary retention Assessment/Plan: appreciate urology noted flomax started dc de anda in AM for trial of voiding Code(s): R33.9 - RETENTION OF URINE, UNSPECIFIED (3) HLD (hyperlipidemia) Assessment/Plan: started on lipitor recheck lipid profile in 4 weeks low cholesterol diet Code(s): E78.5 - HYPERLIPIDEMIA, UNSPECIFIED (4) HTN (hypertension) Assessment/Plan: norvasc and coreg Code(s): I10 - ESSENTIAL (PRIMARY) HYPERTENSION (5) CVA (cerebral vascular accident) Assessment/Plan: old cva neurology consult ordered PT eval for snf placement Code(s): I63.9 - CEREBRAL INFARCTION, UNSPECIFIED (6) Dementia Assessment/Plan: neurology consult ordered seroquel Code(s): F03.90 - UNSPECIFIED DEMENTIA WITHOUT BEHAVIORAL DISTURBANCE (7) UTI (urinary tract infection) Assessment/Plan: on iv levaquin chronic UTI Code(s): N39.0 - URINARY TRACT INFECTION, SITE NOT SPECIFIED (8) Diabetes Assessment/Plan: hgba1c 8.0 sliding scale start levemir 8 units AC breakfast Code(s): E11.9 - TYPE 2 DIABETES MELLITUS WITHOUT COMPLICATIONS Qualifiers: Diabetes mellitus type: type 2
[2017-12-16 13:06] LABS: ALBUMIN 2.2 g/dl (3.4-5.0); ANION GAP 6 (8-16); BILIRUBIN,TOTAL 0.2 mg/dL (0.2-1.0); CALCIUM 8.3 mg/dL (8.5-10.1); CHLORIDE 108 mmol/L (98-107); CO2 28 mmol/L (21-32); GLUCOSE,RANDOM 227 mg/dL (74-106); POTASSIUM 4.2 mmol/L (3.5-5.1); SGOT/AST 19 U/L (15-37); SODIUM 142 mmol/L (136-145); TOT PROT 5.6 g/dl (6.4-8.2)
[2017-12-16 13:09] LABS: ALK PHOS 90 U/L (45-117); BLOOD UREA NITROGEN 46 mg/dL (7-18); SGPT/ALT 20 U/L (12-78)
--- NOTE | 2017-12-16 13:29 | CONSULT ---
Consult - text type - Consultation Consultation Note: NEUROLOGY CONSULTATION is greatly appreciated: This 82 yo man, with h/o HTN, Chol, TG, DM, Anemia, ASHD s/p OK, s/p stents, renal insufficiency, and known GI cancer also has BPH and recurrent urinary retention. He carries neuro dx of "dementia" and "Parkinson's." Maintained on insulins, coreg, seroquel (50 hs), norvasc, lipitor, furosamide and tamsulosin. Now admitted with recurrent urinary retention, requiring Álvarez catheter and antibiotic Rx (Levoquin). CT of head (reviewed): shows diffuse atrophy, ex vacuo hydrocephalus and prominent white matter microvascular disease, especially in the frontal regions. B12, TSH WNL. FABIAN: III/ ELSY radiating into both carotids. Cor Reg. No evidence of external head trauma. Afebrile. Álvarez in situ. Neck supple NEURO: Awake, alert, cooperative. Follow rare commands. Gibberish speech. ++ Glabella, snout, grasps. Full jacobo to threat. No facial. Gag OK Moves all fours well with sl. rigid tone. No sig cogwheel rigidity. Normal reflexes except reduced or absent AJ's. Withdraws all 4's to pinch. IMP: Non-focal exam sig for moderately severe, B/L cerebral dysfunction (OMS, Chronic). Most likely Alzheimer's Disease with prominent temporal lobe involvement (aphasia) Cannot exclude Frontotemporal atrophy (FTA) or Primary Progressive Aphasia (PPA). Suggest: Continue antibiotics, hydration, and supportive care. Social work for home care services if applicable. Thank you very much, Blaze Chapman MD
--- NOTE | 2017-12-16 13:55 | CONSULT ---
Consult Consult Specialty:: Nephrology Reason for Consultation:: CKD - History of Present Illness Chief Complaint: urinary retention History of Present Illness: Pt is an 82 year old male with pmhx of CAD, CHF, urinary retention, CKD and dementia who presnts to the ER with urinary retention. As per chart he was treated for a UTI in an outside hospital. Pt was discharged on cipro. I was called to evaluate the pt for elevated creatinine. He is not able to give much history. He denies shortness of breath. He denies lower ext edema. He denies fevers or chills. 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, Other (Lower extremity weakness) Cardio/Vascular: Yes: CAD, CHF, HTN, Hyperlipdemia Pulmonary: Yes: COPD Renal/: Yes: Renal Inusuff, Other (Urinary retention) Musculoskeletal: Yes: Other (Lower extremity weakness) Endocrine: Yes: Diabetes Mellitus - Alcohol/Substance Use Hx Alcohol Use: No - Smoking History Smoking history: Never smoked Have you smoked in the past 12 months: No Aproximately how many cigarettes per day: 0 Home Medications - Allergies Allergies/Adverse Reactions: Allergies Allergy/AdvReac Type Severity Reaction Status Date / Time Penicillins Allergy Verified 12/12/17 10:31 - Home Medications Home Medications: Ambulatory Orders Amlodipine Besylate [Norvasc -] 5 mg PO DAILY 10/01/12 Carvedilol [Coreg] 25 mg PO BID 10/01/12 Glipizide [Glucotrol] 10 mg PO BID 11/05/12 Lisinopril [Prinivil] 30 mg PO DAILY 12/01/12 Aspirin 81 mg PO DAILY 04/20/13 Ciprofloxacin [Cipro -] 500 mg PO DAILY 12/12/17 Omeprazole 40 mg PO DAILY 12/12/17 Quetiapine Fumarate [Seroquel -] 50 mg PO HS 12/12/17 Tourafio Solostar 65 unit SQ AM 12/12/17 Family Disease History - Family Disease History Family History: Denies Review of Systems - Review of Systems Constitutional: reports: No Symptoms Eyes: reports: No Symptoms HENT: reports: No Symptoms Neck: reports: No Symptoms Cardiovascular: reports: No Symptoms Respiratory: reports: No Symptoms Gastrointestinal: reports: No Symptoms Genitourinary: reports: No Symptoms Musculoskeletal: reports: No Symptoms Integumentary: reports: No Symptoms Neurological: reports: No Symptoms Endocrine: reports: No Symptoms Hematology/Lymphatic: reports: No Symptoms Psychiatric: reports: No Symptoms Physical Exam Vital Signs: Vital Signs Temperature 98.7 F 12/16/17 10:00 Pulse Rate 62 12/16/17 10:00 Respiratory Rate 18 12/16/17 10:00 Blood Pressure 140/46 12/16/17 10:00 O2 Sat by Pulse Oximetry (%) 97 12/16/17 09:00 Constitutional: Yes: Calm Eyes: Yes: Conjunctiva Clear HENT: Yes: Atraumatic Cardiovascular: Yes: S1, S2 Respiratory: Yes: CTA Bilaterally Gastrointestinal: Yes: Normal Bowel Sounds, Soft Renal/: Yes: Álvarez Present Musculoskeletal: Yes: WNL Edema: No Neurological: Yes: Oriented Psychiatric: Yes: Oriented Labs: CBC, BMP 12/14/17 07:15 12/16/17 12:20 Laboratory Tests 10/05/12 11/04/12 11/05/12 06:00 23:30 04:45 WBC Hgb Plt Count Sodium Potassium Chloride Carbon Dioxide Anion Gap Creatinine 1.6 H 3.5 H D 3.3 H BUN Urine Protein Urine WBC (Auto) Urine RBC (Auto) 11/06/12 11/07/12 11/09/12 06:00 06:00 05:35 WBC Hgb Plt Count Sodium Potassium Chloride Carbon Dioxide Anion Gap Creatinine 2.4 H 1.7 H D 1.4 H BUN Urine Protein Urine WBC (Auto) Urine RBC (Auto) 10/06/14 10/07/14 12/12/17 03:55 07:00 11:20 WBC 6.1 D Hgb 12.9 D Plt Count 181 Sodium Potassium Chloride Carbon Dioxide Anion Gap Creatinine 2.6 H 1.9 H D BUN Urine Protein Urine WBC (Auto) Urine RBC (Auto) 12/12/17 12/12/17 12/13/17 13:36 13:56 09:13 WBC Hgb 13.6 Plt Count 207 Sodium Potassium Chloride Carbon Dioxide Anion Gap Creatinine 1.7 H BUN Urine Protein 3+ H D Urine WBC (Auto) 2 Urine RBC (Auto) 3 12/13/17 12/14/17 12/14/17 09:13 07:15 07:15 WBC 7.1 Hgb 12.1 D Plt Count 183 Sodium Potassium Chloride Carbon Dioxide Anion Gap Creatinine 1.5 H 1.8 H BUN Urine Protein Urine WBC (Auto) Urine RBC (Auto) 12/16/17 12:20 WBC Hgb Plt Count Sodium 142 Potassium 4.2 Chloride 108 H Carbon Dioxide 28 Anion Gap 6 L Creatinine 2.0 H BUN 46 H D Urine Protein Urine WBC (Auto) Urine RBC (Auto) Imaging - Results Ultrasound: Report Reviewed Problem List - Problems (1) Aortic regurgitation Code(s): I35.1 - NONRHEUMATIC AORTIC (VALVE) INSUFFICIENCY (2) Aortic stenosis Code(s): I35.0 - NONRHEUMATIC AORTIC (VALVE) STENOSIS (3) CAD (coronary artery disease) Code(s): I25.10 - ATHSCL HEART DISEASE OF [place] CORONARY ARTERY W/O ANG PCTRS (4) CHF (congestive heart failure) Code(s): I50.9 - HEART FAILURE, UNSPECIFIED Qualifiers: Heart failure type: other Qualified Code(s): I50.9 - Heart failure, unspecified (5) CVA (cerebral vascular accident) Code(s): I63.9 - CEREBRAL INFARCTION, UNSPECIFIED (6) Dementia Code(s): F03.90 - UNSPECIFIED DEMENTIA WITHOUT BEHAVIORAL DISTURBANCE (7) Renal insufficiency Code(s): N28.9 - DISORDER OF KIDNEY AND URETER, UNSPECIFIED (8) Urinary retention Code(s): R33.9 - RETENTION OF URINE, UNSPECIFIED Assessment/Plan Current Medications Generic Name Dose Route Start Last Admin Trade Name Freq PRN Reason Stop Dose Admin Albuterol/Ipratropium 1 amp 12/15/17 12:46 Duoneb - NEB Q6H PRN SHORTNESS OF BREATH Amlodipine Besylate 5 mg 12/13/17 15:45 12/16/17 09:52 Norvasc - PO 5 mg DAILY RASHAD Administration Aspirin 81 mg 12/13/17 10:00 12/16/17 09:52 Asa - PO 81 mg DAILY RASHAD Administration Atorvastatin Calcium 40 mg 12/14/17 22:00 12/15/17 22:21 Lipitor - PO 40 mg HS RASHAD Administration Carvedilol 25 mg 12/13/17 10:00 12/16/17 09:52 Coreg - PO 25 mg BID RASHAD Administration Furosemide 20 mg 12/15/17 10:00 12/16/17 09:52 Lasix - PO 20 mg DAILY RASHAD Administration Levofloxacin 500 mg in 100 mls @ 100 mls/hr 12/14/17 10:00 12/16/17 09:52 Levaquin 500 Mg Premixed Ivpb - IVPB 100 mls/hr DAILY RASHAD Administration Insulin Aspart 1 vial 12/12/17 22:00 12/16/17 11:49 Novolog Vial Sliding Scale - SQ 6 units ACHS RASHAD Administration Protocol Insulin Detemir 8 units 12/17/17 07:00 Levemir Vial SQ AM RASHAD Pantoprazole Sodium 40 mg 12/13/17 10:00 12/16/17 09:52 Protonix - PO 40 mg DAILY RASHAD Administration Quetiapine Fumarate 50 mg 12/13/17 22:00 12/15/17 22:22 Seroquel - PO 50 mg HS RASHAD Administration Tamsulosin HCl 0.4 mg 12/17/17 08:30 Flomax - PO DAILY@0830 RASHAD Impression 1. CKD 2. hx UTI 3. urinary obstruction 4. DM 5. dementia 6. CHF 7. HTN 8. HLD 9. colon cancer 10. bph Plan - repeat labs in the am - renal function is not far from baseline - repeat ua - pt will get a voiding trial tomorrow - will need urology follow up Dr Langford
[2017-12-16] MEDS ORDERED: TAMSULOSIN HCL 0.4 MG CAP.ER.24H (FP) PO ONE (14:00)
[2017-12-16 17:17] LABS: URINE APPEARANCE CLEAR; URINE BILIRUBIN NEGATIVE (<2.0 mg/dL); URINE COLOR STRAW; URINE GLUCOSE (UA) 1+ (NEGATIVE); URINE KETONE NEGATIVE (NEGATIVE); URINE LEUK ESTERASE NEGATIVE (NEGATIVE); URINE NITRITE NEGATIVE (NEGATIVE); URINE PROTEIN 2+ (NEGATIVE); URINE UROBILINOGEN NEGATIVE mg/dL (0.2-1.0)
[2017-12-16 17:18] LABS: URINE MUCUS RARE
[2017-12-16] MEDS: ALBUTEROL SO4 2.5/IPRATROPIUM 0.5 INH SOL 3 ML VIAL.NEB. NEB PRN (20:20)
[2017-12-16] MEDS: QUEtiapine FUMARATE 50 MG TABLET PO SCH (21:16)
[2017-12-16] MEDS: ATORVASTATIN CA 40 MG TABLET (FP) PO SCH (21:16)
[2017-12-17] MEDS: INSULIN (LEVEMIR) 100 UNITS/ML UNITS SQ SCH (06:24)
[2017-12-17] MEDS: INSULIN SLIDING SCALE (NOVOLOG) 1 VIAL SQ SCH ×4 (06:25→21:58)
[2017-12-17 08:07] LABS: ANION GAP 7 (8-16); BLOOD UREA NITROGEN 40 mg/dL (7-18); CALCIUM 8.3 mg/dL (8.5-10.1); CHLORIDE 108 mmol/L (98-107); CO2 27 mmol/L (21-32); GLUCOSE,RANDOM 249 mg/dL (74-106); POTASSIUM 3.8 mmol/L (3.5-5.1); SODIUM 142 mmol/L (136-145)
[2017-12-17 08:08] LABS: CREATININE 1.9 mg/dL (0.7-1.3)
[2017-12-17] MEDS: ALBUTEROL SO4 2.5/IPRATROPIUM 0.5 INH SOL 3 ML VIAL.NEB. NEB PRN (09:07)
[2017-12-17] MEDS: FUROSEMIDE 20 MG TABLET (FP) PO SCH (10:10)
[2017-12-17] MEDS: amLODIPine BESYLATE 5 MG TABLET (FP) PO SCH (10:11)
[2017-12-17] MEDS: TAMSULOSIN HCL 0.4 MG CAP.ER.24H (FP) PO SCH (10:11)
[2017-12-17] MEDS: CARVEDILOL 25 MG TABLET (FP) PO SCH ×2 (10:11→21:57)
[2017-12-17] MEDS: PANTOPRAZOLE 40 MG TABLET (FP) PO SCH (10:11)
[2017-12-17] MEDS: ASPIRIN 81 MG CHEWABLE TABLETS PO SCH (10:12)
--- NOTE | 2017-12-17 11:26 | PN ---
Progress Note, Physician - Current Medication List Current Medications: Active Medications Albuterol/Ipratropium (Duoneb -) 1 amp NEB Q6H PRN PRN Reason: SHORTNESS OF BREATH Last Admin: 12/17/17 09:07 Dose: 1 amp Amlodipine Besylate (Norvasc -) 5 mg PO DAILY [facility] Last Admin: 12/17/17 10:11 Dose: 5 mg Aspirin (Asa -) 81 mg PO DAILY [facility] Last Admin: 12/17/17 10:12 Dose: 81 mg Atorvastatin Calcium (Lipitor -) 40 mg PO [facility] Last Admin: 12/16/17 21:16 Dose: 40 mg Carvedilol (Coreg -) 25 mg PO BID [facility] Last Admin: 12/17/17 10:11 Dose: 25 mg Furosemide (Lasix -) 20 mg PO DAILY [facility] Last Admin: 12/17/17 10:10 Dose: 20 mg Levofloxacin (Levaquin 500 Mg Premixed Ivpb -) 500 mg in 100 mls @ 100 mls/hr IVPB DAILY [facility] Last Admin: 12/17/17 10:12 Dose: 100 mls/hr Insulin Aspart (Novolog Vial Sliding Scale -) 1 vial SQ ACHS [facility] PRN Reason: Protocol Last Admin: 12/17/17 06:25 Dose: 6 units Insulin Detemir (Levemir Vial) 8 units SQ AM [facility] Last Admin: 12/17/17 06:24 Dose: 8 units Pantoprazole Sodium (Protonix -) 40 mg PO DAILY [facility] Last Admin: 12/17/17 10:11 Dose: 40 mg Quetiapine Fumarate (Seroquel -) 50 mg PO [facility] Last Admin: 12/16/17 21:16 Dose: 50 mg Tamsulosin HCl (Flomax -) 0.4 mg PO DAILY@0830 [facility] Last Admin: 12/17/17 10:11 Dose: 0.4 mg - Objective Vital Signs: Vital Signs Temperature 97.9 F 12/17/17 06:00 Pulse Rate 64 12/17/17 06:00 Respiratory Rate 20 12/17/17 06:00 Blood Pressure 145/80 12/17/17 06:00 O2 Sat by Pulse Oximetry (%) 98 12/16/17 21:00 Cardiovascular: Yes: Regular Rate and Rhythm Respiratory: Yes: Regular, CTA Bilaterally Gastrointestinal: Yes: Normal Bowel Sounds, Soft Edema: No Neurological: Yes: Confusion Labs: CBC, BMP 12/14/17 07:15 12/17/17 06:30 INR, PTT INR 1.00 (0.82-1.09) 12/13/17 09:13 Problem List - Problems (1) CAD (coronary artery disease) Code(s): I25.10 - ATHSCL HEART DISEASE OF [place] CORONARY ARTERY W/O ANG PCTRS (2) HTN (hypertension) Code(s): I10 - ESSENTIAL (PRIMARY) HYPERTENSION (3) CHF (congestive heart failure) Code(s): I50.9 - HEART FAILURE, UNSPECIFIED Qualifiers: Heart failure type: other Qualified Code(s): I50.9 - Heart failure, unspecified (4) Renal insufficiency Code(s): N28.9 - DISORDER OF KIDNEY AND URETER, UNSPECIFIED (5) Expressive aphasia Code(s): R47.01 - APHASIA Assessment/Plan - Problems (1) Renal insufficiency Assessment/Plan: ordered bmp renal evaluation for CKD Code(s): N28.9 - DISORDER OF KIDNEY AND URETER, UNSPECIFIED (2) Urinary retention Assessment/Plan: appreciate urology noted flomax started dc de anda for trial of voiding Code(s): R33.9 - RETENTION OF URINE, UNSPECIFIED (3) HLD (hyperlipidemia) Assessment/Plan: started on lipitor recheck lipid profile in 4 weeks low cholesterol diet Code(s): E78.5 - HYPERLIPIDEMIA, UNSPECIFIED (4) HTN (hypertension) Assessment/Plan: norvasc and coreg Code(s): I10 - ESSENTIAL (PRIMARY) HYPERTENSION (5) CVA (cerebral vascular accident) Assessment/Plan: old cva neurology consult ordered PT eval for snf placement Code(s): I63.9 - CEREBRAL INFARCTION, UNSPECIFIED (6) Dementia Assessment/Plan: neurology consult ordered seroquel Code(s): F03.90 - UNSPECIFIED DEMENTIA WITHOUT BEHAVIORAL DISTURBANCE (7) UTI (urinary tract infection) Assessment/Plan: on iv levaquin chronic UTI Code(s): N39.0 - URINARY TRACT INFECTION, SITE NOT SPECIFIED (8) Diabetes Assessment/Plan: hgba1c 8.0 sliding scale start levemir 8 units AC breakfast Code(s): E11.9 - TYPE 2 DIABETES MELLITUS WITHOUT COMPLICATIONS Qualifiers: Diabetes mellitus type: type 2
--- NOTE | 2017-12-17 12:45 | PN ---
Progress Note (short form) - Note Progress Note: PULMONARY Denies shortness of breath, cough or wheezing. Last Vital Signs Temp Pulse Resp BP Pulse Ox 98.1 F 60 20 164/68 98 12/17/17 10:00 12/17/17 10:00 12/17/17 10:00 12/17/17 10:00 12/16/17 21:00 Gen: NAD at rest Heart: RRR Lung: basilar rales Abd: soft, nontender Ext: no edema CBC, BMP 12/14/17 07:15 12/17/17 06:30 Active Medications Albuterol/Ipratropium (Duoneb -) 1 amp NEB Q6H PRN PRN Reason: SHORTNESS OF BREATH Last Admin: 12/17/17 09:07 Dose: 1 amp Amlodipine Besylate (Norvasc -) 5 mg PO DAILY [facility] Last Admin: 12/17/17 10:11 Dose: 5 mg Aspirin (Asa -) 81 mg PO DAILY [facility] Last Admin: 12/17/17 10:12 Dose: 81 mg Atorvastatin Calcium (Lipitor -) 40 mg PO HS [facility] Last Admin: 12/16/17 21:16 Dose: 40 mg Carvedilol (Coreg -) 25 mg PO BID [facility] Last Admin: 12/17/17 10:11 Dose: 25 mg Furosemide (Lasix -) 20 mg PO DAILY [facility] Last Admin: 12/17/17 10:10 Dose: 20 mg Levofloxacin (Levaquin 500 Mg Premixed Ivpb -) 500 mg in 100 mls @ 100 mls/hr IVPB DAILY [facility] Last Admin: 12/17/17 10:12 Dose: 100 mls/hr Insulin Aspart (Novolog Vial Sliding Scale -) 1 vial SQ ACHS [facility] PRN Reason: Protocol Last Admin: 12/17/17 11:25 Dose: 8 units Insulin Detemir (Levemir Vial) 8 units SQ AM [facility] Last Admin: 12/17/17 06:24 Dose: 8 units Pantoprazole Sodium (Protonix -) 40 mg PO DAILY [facility] Last Admin: 12/17/17 10:11 Dose: 40 mg Quetiapine Fumarate (Seroquel -) 50 mg PO HS [facility] Last Admin: 12/16/17 21:16 Dose: 50 mg Tamsulosin HCl (Flomax -) 0.4 mg PO DAILY@0830 [facility] Last Admin: 12/17/17 10:11 Dose: 0.4 mg A/P Urinary Retention s/p Álvarez placement CAD LV Diastolic Dysfunction Aortic Stenosis/Regurgitation Pulmonary HTN Atelectasis HTN DM Hyperlipidemia CKD Dementia - CT chest findings and clinical exam more consistent with atelectasis rather than pneumonia - RUL findings nonspecific and on levaquin which should cover possible bronchiolitis - incentive spirometry - inhaled bronchodilators as needed - O2 to keep SpO2 >90% - DVT prophylaxis Problem List - Problems (1) Urinary retention Code(s): R33.9 - RETENTION OF URINE, UNSPECIFIED (2) CAD (coronary artery disease) Code(s): I25.10 - ATHSCL HEART DISEASE OF [place] CORONARY ARTERY W/O ANG PCTRS (3) HTN (hypertension) Code(s): I10 - ESSENTIAL (PRIMARY) HYPERTENSION (4) Atelectasis Code(s): J98.11 - ATELECTASIS (5) Aortic stenosis Code(s): I35.0 - NONRHEUMATIC AORTIC (VALVE) STENOSIS (6) Aortic regurgitation Code(s): I35.1 - NONRHEUMATIC AORTIC (VALVE) INSUFFICIENCY (7) Pulmonary hypertension Code(s): I27.20 - PULMONARY HYPERTENSION, UNSPECIFIED
--- NOTE | 2017-12-17 13:11 | PN ---
Progress Note, Physician History of Present Illness: Pt seen and examined at bedside. He is awake and appears comfortable. He denies shortness of breath. - Current Medication List Current Medications: Active Medications Albuterol/Ipratropium (Duoneb -) 1 amp NEB Q6H PRN PRN Reason: SHORTNESS OF BREATH Last Admin: 12/17/17 09:07 Dose: 1 amp Amlodipine Besylate (Norvasc -) 5 mg PO DAILY [facility] Last Admin: 12/17/17 10:11 Dose: 5 mg Aspirin (Asa -) 81 mg PO DAILY [facility] Last Admin: 12/17/17 10:12 Dose: 81 mg Atorvastatin Calcium (Lipitor -) 40 mg PO HS [facility] Last Admin: 12/16/17 21:16 Dose: 40 mg Carvedilol (Coreg -) 25 mg PO BID [facility] Last Admin: 12/17/17 10:11 Dose: 25 mg Furosemide (Lasix -) 20 mg PO DAILY [facility] Last Admin: 12/17/17 10:10 Dose: 20 mg Levofloxacin (Levaquin 500 Mg Premixed Ivpb -) 500 mg in 100 mls @ 100 mls/hr IVPB DAILY [facility] Last Admin: 12/17/17 10:12 Dose: 100 mls/hr Insulin Aspart (Novolog Vial Sliding Scale -) 1 vial SQ ACHS [facility] PRN Reason: Protocol Last Admin: 12/17/17 11:25 Dose: 8 units Insulin Detemir (Levemir Vial) 8 units SQ AM [facility] Last Admin: 12/17/17 06:24 Dose: 8 units Pantoprazole Sodium (Protonix -) 40 mg PO DAILY [facility] Last Admin: 12/17/17 10:11 Dose: 40 mg Quetiapine Fumarate (Seroquel -) 50 mg PO HS [facility] Last Admin: 12/16/17 21:16 Dose: 50 mg Tamsulosin HCl (Flomax -) 0.4 mg PO DAILY@0830 [facility] Last Admin: 12/17/17 10:11 Dose: 0.4 mg - Objective Vital Signs: Vital Signs Temperature 98.1 F 12/17/17 10:00 Pulse Rate 60 12/17/17 10:00 Respiratory Rate 20 12/17/17 10:00 Blood Pressure 164/68 12/17/17 10:00 O2 Sat by Pulse Oximetry (%) 98 04/03/18 21:00 Constitutional: Yes: Calm Eyes: Yes: Conjunctiva Clear HENT: Yes: Atraumatic Neck: Yes: Supple Cardiovascular: Yes: S1, S2 Respiratory: Yes: CTA Bilaterally Gastrointestinal: Yes: Soft Genitourinary: Yes: Álvarez Present Extremities: Yes: WNL Edema: No Integumentary: Yes: WNL Neurological: Yes: Oriented Labs: CBC, BMP 12/14/17 07:15 12/17/17 06:30 INR, PTT INR 1.00 (0.82-1.09) 12/13/17 09:13 Problem List - Problems (1) Aortic regurgitation Code(s): I35.1 - NONRHEUMATIC AORTIC (VALVE) INSUFFICIENCY (2) Aortic stenosis Code(s): I35.0 - NONRHEUMATIC AORTIC (VALVE) STENOSIS (3) CAD (coronary artery disease) Code(s): I25.10 - ATHSCL HEART DISEASE OF [place] CORONARY ARTERY W/O ANG PCTRS (4) CHF (congestive heart failure) Code(s): I50.9 - HEART FAILURE, UNSPECIFIED Qualifiers: Heart failure type: other Qualified Code(s): I50.9 - Heart failure, unspecified (5) CVA (cerebral vascular accident) Code(s): I63.9 - CEREBRAL INFARCTION, UNSPECIFIED (6) Dementia Code(s): F03.90 - UNSPECIFIED DEMENTIA WITHOUT BEHAVIORAL DISTURBANCE (7) Renal insufficiency Code(s): N28.9 - DISORDER OF KIDNEY AND URETER, UNSPECIFIED (8) Urinary retention Code(s): R33.9 - RETENTION OF URINE, UNSPECIFIED Assessment/Plan Current Medications Generic Name Dose Route Start Last Admin Trade Name Freq PRN Reason Stop Dose Admin Albuterol/Ipratropium 1 amp 12/15/17 12:46 12/17/17 09:07 Duoneb - NEB 1 amp Q6H PRN Administration SHORTNESS OF BREATH Amlodipine Besylate 5 mg 12/13/17 15:45 12/17/17 10:11 Norvasc - PO 5 mg DAILY [facility] Administration Aspirin 81 mg 12/13/17 10:00 12/17/17 10:12 Asa - PO 81 mg DAILY [facility] Administration Atorvastatin Calcium 40 mg 12/14/17 22:00 12/16/17 21:16 Lipitor - PO 40 mg HS [facility]AD Administration Carvedilol 25 mg 12/13/17 10:00 12/17/17 10:11 Coreg - PO 25 mg BID [facility]AD Administration Furosemide 20 mg 12/15/17 10:00 12/17/17 10:10 Lasix - PO 20 mg DAILY [facility] Administration Levofloxacin 500 mg in 100 mls @ 100 mls/hr 12/14/17 10:00 12/17/17 10:12 Levaquin 500 Mg Premixed Ivpb - IVPB 100 mls/hr DAILY [facility] Administration Insulin Aspart 1 vial 12/12/17 22:00 12/17/17 11:25 Novolog Vial Sliding Scale - SQ 8 units ACHS [facility]AD Administration Protocol Insulin Detemir 8 units 12/17/17 07:00 12/17/17 06:24 Levemir Vial SQ 8 units AM [facility] Administration Pantoprazole Sodium 40 mg 12/13/17 10:00 12/17/17 10:11 Protonix - PO 40 mg DAILY [facility] Administration Quetiapine Fumarate 50 mg 12/13/17 22:00 12/16/17 21:16 Seroquel - PO 50 mg HS [facility] Administration Tamsulosin HCl 0.4 mg 12/17/17 08:30 12/17/17 10:11 Flomax - PO 0.4 mg DAILY@0830 [facility] Administration Impression 1. CKD 2. hx UTI 3. urinary obstruction 4. DM 5. dementia 6. CHF 7. HTN 8. HLD 9. colon cancer 10. bph 11. proteinuria Plan - renal function is stable - cont flomax - voiding trial per urology - will see as outpt for workup - avoid nsaids and nephrotoxins Dr Langford
[2017-12-17] MEDS: QUEtiapine FUMARATE 50 MG TABLET PO SCH (21:57)
[2017-12-17] MEDS: ATORVASTATIN CA 40 MG TABLET (FP) PO SCH (21:57)
[2017-12-18] MEDS: INSULIN (LEVEMIR) 100 UNITS/ML UNITS SQ SCH (06:23)
[2017-12-18] MEDS: INSULIN SLIDING SCALE (NOVOLOG) 1 VIAL SQ SCH ×2 (06:25→11:58)
--- NOTE | 2017-12-18 07:59 | DS ---
Physical Examination Vital Signs: Vital Signs Temperature 97.2 F L 12/17/17 22:00 Pulse Rate 70 12/17/17 22:00 Respiratory Rate 18 12/17/17 22:00 Blood Pressure 130/75 12/17/17 22:00 O2 Sat by Pulse Oximetry (%) 100 12/17/17 21:00 Cardiovascular: Yes: Regular Rate and Rhythm Respiratory: Yes: Regular, CTA Bilaterally Gastrointestinal: Yes: Normal Bowel Sounds, Soft Renal/: Yes: Other (de anda out) Labs: CBC, BMP 12/14/17 07:15 12/17/17 06:30 Discharge Summary Reason For Visit: CONGESTIVE HEART FAILURE Current Active Problems Aortic regurgitation (Acute) Aortic stenosis (Acute) Atelectasis (Acute) CAD (coronary artery disease) (Acute) CHF (congestive heart failure) (Acute) CVA (cerebral vascular accident) (Acute) CVA, old, alterations of sensations (Acute) Dementia (Acute) Diabetes (Acute) Expressive aphasia (Acute) HLD (hyperlipidemia) (Acute) HTN (hypertension) (Acute) Pulmonary hypertension (Acute) UTI (urinary tract infection) (Acute) Hospital Course: 82-year-old male, with a significant past medical history of CAD s/p GA s/p stent with restenosis, left-sided systolic heart failure with mild aortic stenosis, angina pectoris, HTN, HLD, anemia, dementia, Parkinson, a large intestine neoplasm, acute erosive gastritis, type 2 diabetes, chronic renal insufficiency, BPH, and urinary retention secondary to obstructive uropathy, who presents to the ED with elevated BP and urinary retention today. As per daughter, the patient was recently admitted last Friday12/07/17 at [facility] for a kidney infection. A de anda was placed and the patient was discharged home with 500 mg Cipro. Daughter decided to bring in the patient today because she noted his blood sugar was over 200 today and he has not been putting out much urine. She also reports that the patient has not been drinking much fluids, but has a good appetite. For the past couple of mornings, the patient has been experiencing shortness of breath for which hes been given O2 at home. - Past Medical History SWAGE TENDER: Yes: Dementia, Other (Lower extremity weakness) Cardiovascular: Yes: CAD, CHF, HTN, Hyperlipdemia Pulmonary: Yes: COPD Renal/: Yes: Other (Urinary retention) Musculoskeletal: Yes: Other (Lower extremity weakness) Endocrine: Yes: Diabetes Mellitus - Problems (1) Renal insufficiency Assessment/Plan: ordered bmp renal evaluation for CKD Code(s): N28.9 - DISORDER OF KIDNEY AND URETER, UNSPECIFIED (2) Urinary retention Assessment/Plan: appreciate urology noted flomax started dc de anda for trial of voiding--voiding no retention Code(s): R33.9 - RETENTION OF URINE, UNSPECIFIED (3) HLD (hyperlipidemia) Assessment/Plan: started on lipitor recheck lipid profile in 4 weeks low cholesterol diet Code(s): E78.5 - HYPERLIPIDEMIA, UNSPECIFIED (4) HTN (hypertension) Assessment/Plan: norvasc and coreg Code(s): I10 - ESSENTIAL (PRIMARY) HYPERTENSION (5) CVA (cerebral vascular accident) Assessment/Plan: old cva neurology consult ordered PT eval for snf placement Code(s): I63.9 - CEREBRAL INFARCTION, UNSPECIFIED (6) Dementia Assessment/Plan: neurology consult ordered seroquel Code(s): F03.90 - UNSPECIFIED DEMENTIA WITHOUT BEHAVIORAL DISTURBANCE (7) UTI (urinary tract infection) Assessment/Plan: on iv levaquin chronic UTI Code(s): N39.0 - URINARY TRACT INFECTION, SITE NOT SPECIFIED (8) Diabetes Assessment/Plan: hgba1c 8.0 sliding scale start levemir 8 units AC breakfast Code(s): E11.9 - TYPE 2 DIABETES MELLITUS WITHOUT COMPLICATIONS Qualifiers: Diabetes mellitus type: type 2 Condition: Stable - Instructions Disposition: [facility] - Home Medications Comprehensive Discharge Medication List: Ambulatory Orders Carvedilol [Coreg] 25 mg PO BID 10/01/12 Aspirin 81 mg PO DAILY 04/20/13 Omeprazole 40 mg PO DAILY 12/12/17 Quetiapine Fumarate [Seroquel -] 50 mg PO HS 12/12/17 Albuterol 2.5/Ipratropium 0.5 [Duoneb -] 1 amp NEB Q6H PRN amp 12/18/17 Amlodipine Besylate [Norvasc -] 5 mg PO DAILY tablet 12/18/17 Atorvastatin Ca [Lipitor] 40 mg PO HS tablet 12/18/17 Furosemide [Lasix -] 20 mg PO DAILY tablet 12/18/17 Insulin (Levemir) [Levemir Vial] 8 units SQ AM ml 12/18/17 Insulin Sliding Scale [Novolog Vial Sliding Scale -] 1 vial SQ ACHS units 12/18 Tamsulosin HCl [Flomax -] 0.4 mg PO DAILY@0830 cap.er.24h 12/18/17
[2017-12-18] MEDS: TAMSULOSIN HCL 0.4 MG CAP.ER.24H (FP) PO SCH (08:37)
[2017-12-18 08:40] VITALS: BP 150/64; PULSE 62; TEMP 97.5
[2017-12-18] MEDS: CARVEDILOL 25 MG TABLET (FP) PO SCH (09:07)
[2017-12-18] MEDS: PANTOPRAZOLE 40 MG TABLET (FP) PO SCH (09:07)
[2017-12-18] MEDS: amLODIPine BESYLATE 5 MG TABLET (FP) PO SCH (09:07)
[2017-12-18] MEDS: ASPIRIN 81 MG CHEWABLE TABLETS PO SCH (09:07)
[2017-12-18] MEDS: FUROSEMIDE 20 MG TABLET (FP) PO SCH (09:08)
--- NOTE | 2017-12-18 11:47 | PN ---
Progress Note (short form) - Note Progress Note: PULMONARY Denies shortness of breath, cough or wheezing. No fevers recorded. Last Vital Signs Temp Pulse Resp BP Pulse Ox 97.5 F L 62 18 150/64 97 12/18/17 08:38 12/18/17 08:38 12/18/17 08:38 12/18/17 08:38 12/18/17 08:42 Gen: NAD at rest Heart: RRR Lung: basilar rales Abd: soft, nontender Ext: no edema CBC, BMP 12/14/17 07:15 12/17/17 06:30 Active Medications Albuterol/Ipratropium (Duoneb -) 1 amp NEB Q6H PRN PRN Reason: SHORTNESS OF BREATH Last Admin: 12/17/17 09:07 Dose: 1 amp Amlodipine Besylate (Norvasc -) 5 mg PO DAILY [facility] Last Admin: 12/18/17 09:07 Dose: 5 mg Aspirin (Asa -) 81 mg PO DAILY [facility] Last Admin: 12/18/17 09:07 Dose: 81 mg Atorvastatin Calcium (Lipitor -) 40 mg PO HS [facility] Last Admin: 12/17/17 21:57 Dose: 40 mg Carvedilol (Coreg -) 25 mg PO BID [facility] Last Admin: 12/18/17 09:07 Dose: 25 mg Furosemide (Lasix -) 20 mg PO DAILY [facility] Last Admin: 12/18/17 09:08 Dose: 20 mg Levofloxacin (Levaquin 500 Mg Premixed Ivpb -) 500 mg in 100 mls @ 100 mls/hr IVPB DAILY [facility] Last Admin: 12/18/17 09:07 Dose: 100 mls/hr Insulin Aspart (Novolog Vial Sliding Scale -) 1 vial SQ ACHS [facility] PRN Reason: Protocol Last Admin: 12/18/17 06:25 Dose: 6 units Insulin Detemir (Levemir Vial) 8 units SQ AM [facility] Last Admin: 12/18/17 06:23 Dose: 8 units Pantoprazole Sodium (Protonix -) 40 mg PO DAILY [facility] Last Admin: 12/18/17 09:07 Dose: 40 mg Quetiapine Fumarate (Seroquel -) 50 mg PO HS [facility] Last Admin: 12/17/17 21:57 Dose: 50 mg Tamsulosin HCl (Flomax -) 0.4 mg PO DAILY@0830 [facility] Last Admin: 12/18/17 08:37 Dose: 0.4 mg A/P Urinary Retention s/p Álvarez placement CAD LV Diastolic Dysfunction Aortic Stenosis/Regurgitation Pulmonary HTN Atelectasis HTN DM Hyperlipidemia CKD Dementia - CT chest findings and clinical exam more consistent with atelectasis rather than pneumonia - RUL findings nonspecific and on levaquin which should cover possible bronchiolitis - incentive spirometry - inhaled bronchodilators as needed - O2 to keep SpO2 >90% - DVT prophylaxis Problem List - Problems (1) Urinary retention Code(s): R33.9 - RETENTION OF URINE, UNSPECIFIED (2) CAD (coronary artery disease) Code(s): I25.10 - ATHSCL HEART DISEASE OF [place] CORONARY ARTERY W/O ANG PCTRS (3) HTN (hypertension) Code(s): I10 - ESSENTIAL (PRIMARY) HYPERTENSION (4) Atelectasis Code(s): J98.11 - ATELECTASIS (5) Aortic stenosis Code(s): I35.0 - NONRHEUMATIC AORTIC (VALVE) STENOSIS (6) Aortic regurgitation Code(s): I35.1 - NONRHEUMATIC AORTIC (VALVE) INSUFFICIENCY (7) Pulmonary hypertension Code(s): I27.20 - PULMONARY HYPERTENSION, UNSPECIFIED
== END 2017-12-18 11:51 | DRG 690 ==
LOC: JER 10:29 → JERBED 15:04 → J5S 17:43
PROVIDERS: ADMIT Family Medicine; ATTEND Family Medicine
DX: N39.0 Urinary tract infection, site not specified (principal); I13.0 Hypertensive heart and chronic kidney disease with heart failure and stage 1 through stage 4 chronic kidney disease, or unspecified chronic kidney disease; J98.11 Atelectasis; I50.20 Unspecified systolic (congestive) heart failure; E11.22 Type 2 diabetes mellitus with diabetic chronic kidney disease; N18.9 Chronic kidney disease, unspecified; I35.0 Nonrheumatic aortic (valve) stenosis; I35.1 Nonrheumatic aortic (valve) insufficiency; I27.20 Pulmonary hypertension, unspecified; E78.5 Hyperlipidemia, unspecified; F03.90 Unspecified dementia, unspecified severity, without behavioral disturbance, psychotic disturbance, mood disturbance, and anxiety; N40.1 Benign prostatic hyperplasia with lower urinary tract symptoms; N13.9 Obstructive and reflux uropathy, unspecified; I25.10 Atherosclerotic heart disease of native coronary artery without angina pectoris; Z98.61 Coronary angioplasty status; Z86.73 Personal history of transient ischemic attack (TIA), and cerebral infarction without residual deficits; G20 Parkinson's disease; R33.9 Retention of urine, unspecified
CPT/HCPCS: 36415; 70450-TC; 71045-TC-FY; 71250-TC; 76856-TC; 80048; 80053; 80061; 81003; 81015; 82009; 82550; 82607; 82803; 82962; 83036; 83605; 83721; 83880; 84443; 84484; 85025; 85610; 85730; 87040; 87086; 93005; 93010; 93306-TC; 94010; 94640; 97116-GP; 97161-GP; 99285-25; J7620